=== PATIENT | female | born 1980 ===

== ENCOUNTER 2025-08-19 07:00 | Day surgery (SDC) | payer OTHER ==
[2025-08-19] MEDS ORDERED: MIDAZOLAM HCL 2 MG/2 ML VIAL IV ONE (08:15)
[2025-08-19] MEDS ORDERED: DIPHENHYDRAMINE HCL 50 MG/ML VIAL 1ML IV ONE (08:15)
[2025-08-19] MEDS ORDERED: fentaNYL CITRATE 50 MCG/ML AMPUL IV PUSH ONE (08:15)
== END 2025-08-19 09:15 | disposition home or self-care (01) ==
LOC: AMB-ENDOS 07:00
PROVIDERS: ATTEND Colon & Rectal Surgery
DX: Z80.0 Family history of malignant neoplasm of digestive organs (principal); Z86.0100 Personal history of colon polyps, unspecified